=== PATIENT | female | born 1980 | race Caucasian/White ===

== ENCOUNTER 2016-06-07 20:50 | Emergency (ER) | payer SELFPAY ==
[2016-06-07 20:56] VITALS: BP 107/68
== END 2016-06-07 21:30 | disposition left against medical advice (07) ==
LOC: ER 20:50
DX: Z53.21 Procedure and treatment not carried out due to patient leaving prior to being seen by health care provider (principal)

== ENCOUNTER 2018-05-24 03:40 | Emergency (ER) | payer SELFPAY ==
[2018-05-24 03:44] VITALS: BP 118/74
== END 2018-05-24 04:23 | disposition left against medical advice (07) ==
LOC: ER 03:40
DX: Z53.21 Procedure and treatment not carried out due to patient leaving prior to being seen by health care provider (principal)

== ENCOUNTER 2018-05-24 14:42 | Emergency (ER) | payer SELFPAY ==
[2018-05-24 14:58] VITALS: BP 123/82
--- NOTE | 2018-05-24 15:13 | ER Document Report ---
ED ENT - General Chief Complaint: Ear Pain Stated Complaint: EAR PAIN Time Seen by Provider: 05/24/18 15:10 Mode of Arrival: Ambulatory Information source: Patient - HPI Patient complains to provider of: Ear problem Onset: Other - pt. with L earache for the past 1-2 days - Related Data Allergies/Adverse Reactions: No Known Allergies Allergy (Verified 04/30/13 16:51) Past Medical History - General Information source: Patient - Social History Smoking Status: Current Every Day Smoker Chew tobacco use (# tins/day): No Frequency of alcohol use: None Drug Abuse: None Family History: Reviewed & Not Pertinent, DM, Hypertension Patient has suicidal ideation: No Patient has homicidal ideation: No Pulmonary Medical History: Reports: Hx Bronchitis Denies: Hx Tuberculosis Renal/ Medical History: Denies: Hx Peritoneal Dialysis Past Surgical History: Reports: Hx Section - x2, Hx Tubal Ligation - Immunizations Hx Diphtheria, Pertussis, Tetanus Vaccination: No Review of Systems - Review of Systems Constitutional: No symptoms reported EENT: See HPI, Ear pain Cardiovascular: No symptoms reported Respiratory: No symptoms reported Gastrointestinal: No symptoms reported -: Yes All other systems reviewed and negative Physical Exam - Vital signs Vitals: Temp Pulse Resp BP Pulse Ox 97.7 F 105 H 16 123/82 100 05/24/18 14:57 05/24/18 14:57 05/24/18 14:57 05/24/18 14:57 05/24/18 14:57 - General General appearance: Appears well In distress: None - HEENT Tympanic membrane: Injected, Loss of landmarks - L TM. R TM is normal Course - Vital Signs Vital signs: Temp Pulse Resp BP Pulse Ox 97.7 F 105 H 16 123/82 100 05/24/18 14:57 05/24/18 14:57 05/24/18 14:57 05/24/18 14:57 05/24/18 14:57 Discharge - Discharge Clinical Impression: Otitis media Qualifiers: Otitis media type: unspecified Chronicity: acute Qualified Code(s): H66.90 - Otitis media, unspecified, unspecified ear Condition: Stable Disposition: HOME, SELF-CARE Additional Instructions: rest, take meds as prescribed, return if worse Prescriptions: Amoxicillin Trihydrate [Amoxil 500 mg Capsule] 500 mg PO TID #30 capsule Referrals: NOREEN SOTO MD [ACTIVE STAFF] - Follow up as needed
== END 2018-05-24 15:15 | disposition home or self-care (01) ==
LOC: ER 14:42
DX: H66.90 Otitis media, unspecified, unspecified ear (principal); H92.02 Otalgia, left ear; Z98.51 Tubal ligation status; F17.200 Nicotine dependence, unspecified, uncomplicated
CPT/HCPCS: 99282

== ENCOUNTER 2020-02-24 10:03 | Emergency (ER) | payer SELFPAY ==
[2020-02-24 10:21] VITALS: BP 116/79
[2020-02-24] MEDS ORDERED: OXYCODONE-ACETAMINOPHEN 5-325 MG TABLET PO ONE (10:23)
--- NOTE | 2020-02-24 10:25 | ER Document Report ---
HPI - HPI Time Seen by Provider: 02/24/20 10:16 Pain Level: 4 Notes: 39-year-old female patient presenting to the emergency department chief complaint of right knee pain. Patient reports she was doing some yard work yesterday when she stepped into a palate and her knee twisted. She denies any previous injury to this area. - ROS Systems Reviewed and Negative: Yes All other systems reviewed and negative - REPRODUCTIVE Reproductive: DENIES: : - MUSCULOSKELETAL Musculoskeletal: REPORTS: Extremity pain Past Medical History - General Information source: Patient - Social History Smoking Status: Current Every Day Smoker Chew tobacco use (# tins/day): No Frequency of alcohol use: None Drug Abuse: Marijuana Family History: Reviewed & Not Pertinent, DM, Hypertension Pulmonary Medical History: Reports: Hx Bronchitis Denies: Hx Tuberculosis Renal/ Medical History: Denies: Hx Peritoneal Dialysis Past Surgical History: Reports: Hx Section - x2, Hx Tubal Ligation - Immunizations Hx Diphtheria, Pertussis, Tetanus Vaccination: No Vertical Provider Document - CONSTITUTIONAL Notes: PHYSICAL EXAMINATION: GENERAL: Well-appearing, well-nourished and in no acute distress. HEAD: Atraumatic, normocephalic. EYES: Pupils equal round extraocular movements intact, conjunctiva are normal. ENT: Nares patent NECK: Normal range of motion LUNGS: No respiratory distress Musculoskeletal: Limited range of motion to right knee. Tenderness along the medial aspect. No bony crepitus or deformity. NEUROLOGICAL: Normal speech, normal gait. PSYCH: Normal mood, normal affect. SKIN: Warm, Dry, normal turgor, no rashes or lesions noted. Course - Re-evaluation Re-evalutation: Knee X-Ray 02/24/20 10:19 IMPRESSION: NEGATIVE STUDY OF THE RIGHT KNEE. NO RADIOGRAPHIC EVIDENCE OF ACUTE INJURY. - Vital Signs Vital signs: Temp Pulse Resp BP Pulse Ox 97.8 F 105 H 18 116/79 100 02/24/20 10:18 02/24/20 10:18 02/24/20 10:18 02/24/20 10:18 02/24/20 10:18 Procedures - Immobilization right knee Pre-Proc Neuro Vasc Exam: Normal Immobilizer type: Crutches, Knee immobilizer Performed by: PCT Post-Proc Neuro Vasc Exam: Normal Discharge - Discharge Clinical Impression: Right knee injury Qualifiers: Encounter type: initial encounter Qualified Code(s): S89.91XA - Unspecified injury of right lower leg, initial encounter Condition: Stable Disposition: HOME, SELF-CARE Additional Instructions: The x-ray of your knee today showed no acute abnormality with the bones. This does not rule out a tendon or ligament injury although this is unlikely. Use the knee immobilizing splint and crutches for the next 1 to 2 weeks. Ice the knee, elevate. Take Tylenol and ibuprofen as directed on [id number] bottles for pain and inflammation. Follow-up with orthopedics in 1 to 2 weeks if not improving. Return to ED with any new or worsening concerns. Prescriptions: Hydrocodone/Acetaminophen [[place] 5-325 mg Tablet] 1 tab PO Q6HP PRN #8 tablet PRN Reason: Forms: Return to Work Referrals: ARIELA FRANCO JR, DO [ACTIVE PROVISIONAL STAFF] - Follow up as needed
--- NOTE | 2020-02-24 10:57 | RADIOLOGY REPORT (SQ) ---
EXAM DESCRIPTION: KNEE RIGHT 4 VIEWS IMAGES COMPLETED DATE/TIME: 02/24/2020 10:40 am REASON FOR STUDY: twisted, pain COMPARISON: None. NUMBER OF VIEWS: Four views. TECHNIQUE: AP, lateral, and both oblique radiographic images acquired of the right knee. LIMITATIONS: None. FINDINGS: MINERALIZATION: Normal. BONES: No acute fracture or dislocation. No worrisome bone lesions. JOINT: No effusion. SOFT TISSUES: No soft tissue swelling. No radio-opaque foreign body. OTHER: No other significant finding. IMPRESSION: NEGATIVE STUDY OF THE RIGHT KNEE. NO RADIOGRAPHIC EVIDENCE OF ACUTE INJURY. TECHNICAL DOCUMENTATION: JOB ID: [id number] 2010 [employer]- All Rights Reserved Reading location - IP/workstation name: [email or web address]
== END 2020-02-24 11:10 | disposition home or self-care (01) ==
LOC: ER 10:03
DX: S89.91XA Unspecified injury of right lower leg, initial encounter (principal); M25.561 Pain in right knee; X50.9XXA Other and unspecified overexertion or strenuous movements or postures, initial encounter; Y93.H9 Activity, other involving exterior property and land maintenance, building and construction; F17.200 Nicotine dependence, unspecified, uncomplicated; F12.10 Cannabis abuse, uncomplicated
CPT/HCPCS: 99284